=== PATIENT | male | born 1960 | race Caucasian/White ===

== ENCOUNTER 2017-02-23 15:19 | Emergency (ER) | payer OTHER ==
[~2017-02-23] VITALS: Ht 175.3 cm; Wt 136.1 kg
[2017-02-23] MEDS ORDERED: Norco 7.5mg/325mg tab ORAL ONE (16:00)
[2017-02-23 16:04] VITALS: BP 181/90
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
[2017-02-23] MEDS ORDERED: IBUPROFEN600 MG ORAL (17:42)
[2017-02-23] MEDS ORDERED: NORCO 5-325 TA1 EACH ORAL (17:42)
[2017-02-23 18:13] VITALS: BP 159/82
[2017-02-23 18:14] VITALS: BP 154/82
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
== END 2017-02-23 18:18 | disposition home or self-care (01) ==
LOC: EMR 17:15
DX: S52.502A Unspecified fracture of the lower end of left radius, initial encounter for closed fracture (principal); S52.602A Unspecified fracture of lower end of left ulna, initial encounter for closed fracture; V43.52XA Car driver injured in collision with other type car in traffic accident, initial encounter; Y93.9 Activity, unspecified; Y92.411 Interstate highway as the place of occurrence of the external cause; I10 Essential (primary) hypertension
CPT/HCPCS: 29125; 29240; 99284